=== PATIENT | male | born 1955 | race Caucasian/White ===

== ENCOUNTER 2017-10-21 20:20 | Emergency (ER) | payer MEDICAID ==
[2017-10-21] MEDS ORDERED: HYDROmorphone 0.5 MG/0.5 ML Syringe IVPUSH ONE ×2 (20:48→21:44)
[2017-10-21] MEDS ORDERED: Sodium Chloride 0.9% 1,000 ML IV SCH (21:00)
[2017-10-21] MEDS ORDERED: Sodium Chloride 0.9% 10 ML Syringe FLUSH PRN (21:44)
[2017-10-21] MEDS ORDERED: Iopamidol 612 MG/ML 100 ML Bottle IV SCH (21:45)
[2017-10-21] MEDS ORDERED: Sodium Chloride 0.9% 80 ML IV SCH (21:45)
--- NOTE | 2017-10-21 21:59 | EDM.PDOC ---
ED HPI GENERAL MEDICAL PROBLEM - General Chief Complaint: General Stated Complaint: HURT BACK Time Seen by Provider: 10/21/17 20:45 Source of Information: Reports: Patient History Limitations: Reports: No Limitations - History of Present Illness INITIAL COMMENTS - FREE TEXT/NARRATIVE: 62-year-old male slipped on the ice 6 hours ago striking his head and right back very hard on the ice. He thinks it may have even temporarily lost consciousness, but he has no neurologic symptoms or headache at this time. He has some mild nausea, but the majority of his complaints are intense right flank discomfort, pleuritic pain with breathing and pain with moving. Denies abdominal pain. He also has no appetite and has not eaten anything since his fall. Onset: Sudden Duration: Hour(s): (6 hours ago) Location: Reports: Chest, Back Severity: Moderate Worsens with: Reports: Breathing, Movement Associated Symptoms: Denies: Confusion right ribs Pain Score (Numeric/FACES): 8 - Related Data Allergies Allergy/AdvReac Type Severity Reaction Status Date / Time No Known Allergies Allergy Verified 10/21/17 20:38 Home Meds: Home Meds Folic Acid 1 mg PO DAILY 10/21/17 [History] Methotrexate 10 tab PO Q7D 10/21/17 [History] Past Medical History Musculoskeletal History: Reports: Fracture Hematologic History: Reports: Folic Acid Oncologic (Cancer) History: Reports: Other (See Below) Other Oncologic History: skin CA Dermatologic History: Reports: Eczema - Past Surgical History Musculoskeletal Surgical History: Reports: Other (See Below) Other Musculoskeletal Surgeries/Procedures:: L hip repair after fracture Social & Family History - Tobacco Use Smoking Status *Q: Current Every Day Smoker Years of Tobacco use: 45 Packs/Tins Daily: 1 - Caffeine Use Caffeine Use: Reports: Coffee - Recreational Drug Use Recreational Drug Use: No ED ROS GENERAL - Review of Systems Review Of Systems: See Below Constitutional: Denies: Fever, Chills Respiratory: Reports: Pleuritic Chest Pain. Denies: Shortness of Breath Cardiovascular: Reports: Chest Pain GI/Abdominal: Reports: Nausea. Denies: Abdominal Pain, Vomiting Musculoskeletal: Reports: Back Pain Skin: Denies: Bruising, Erythema Neurological: Denies: Headache ED EXAM, GENERAL - Physical Exam Exam: See Below Exam Limited By: No Limitations General Appearance: Alert, Mild Distress (Patient is fairly uncomfortable) Eye Exam: Bilateral Eye: Normal Inspection Head: Atraumatic Respiratory/Chest: No Respiratory Distress, Lungs Clear, Other (Patient is intensely sore to palpation across the right flank area, there is no crepitus or bruising seen) Cardiovascular: Regular Rate, Rhythm GI/Abdominal: Soft, Non-Tender Neurological: Alert, Oriented Skin Exam: Warm, Dry Course - Vital Signs Last Recorded V/S: Last Vital Signs Temp 100.0 F 10/21/17 20:35 Pulse 82 10/21/17 22:16 Resp 15 10/21/17 22:16 BP 157/76 H 10/21/17 22:16 Pulse Ox 94 L 10/21/17 22:16 - Orders/Labs/Meds Orders: Active Orders 24 hr Category Date Time Status Chest Abdomen Pelvis w Cont [CT] Stat Exams 10/21/17 21:27 Taken Labs: Laboratory Tests 10/21/17 10/21/17 Range/Units 20:55 20:55 WBC 17.2 H (4.5-11.0) K/uL RBC 5.21 (4.30-5.90) M/uL Hgb 15.7 H (12.0-15.0) g/dL Hct 45.7 (40.0-54.0) % MCV 88 (80-98) fL MCH 30 (27-31) pg MCHC 34 (32-36) % Plt Count 330 (150-400) K/uL Neut % (Auto) 85 H (36-66) % Lymph % (Auto) 7 L (24-44) % [place] % (Auto) 7 H (2-6) % Eos % (Auto) 0 L (2-4) % Baso % (Auto) 0 (0-1) % Sodium 135 L (140-148) mmol/L Potassium 4.0 (3.6-5.2) mmol/L Chloride 100 (100-108) mmol/L Carbon Dioxide 27 (21-32) mmol/L Anion Gap 12.0 (5.0-14.0) mmol/L BUN 18 (7-18) mg/dL Creatinine 0.9 (0.8-1.3) mg/dL Est Cr Clr Drug Dosing 90.12 mL/min Estimated GFR (MDRD) > 60 (>60) Glucose 105 (74-106) mg/dL Calcium 9.2 (8.5-10.1) mg/dL Meds: Medications Discontinued Medications Generic Name Dose Route Start Last Admin Trade Name Freq PRN Reason Stop Dose Admin Hydromorphone HCl 0.5 mg 10/21/17 20:48 10/21/17 21:18 Dilaudid IVPUSH 10/21/17 20:49 0.5 mg ONETIME ONE Administration Hydromorphone HCl 0.5 mg 10/21/17 21:44 10/21/17 21:48 Dilaudid IVPUSH 10/21/17 21:45 0.5 mg ONETIME ONE Administration Sodium Chloride 1,000 mls @ 500 mls/hr 10/21/17 21:00 10/21/17 21:18 Normal Saline IV 500 mls/hr ASDIRECTED AIDA Administration Sodium Chloride 80 mls @ 3 mls/sec 10/21/17 21:45 10/21/17 22:03 Normal Saline IV 3 mls/sec ASDIRECTED AIDA Administration Iopamidol 100 ml 10/21/17 21:45 10/21/17 22:03 Isovue-300 (61%) IV 100 ml . DIRECTED AIDA Administration Sodium Chloride 10 ml 10/21/17 21:44 10/21/17 22:03 Saline Flush FLUSH 10 ml ASDIRECTED PRN Administration Keep Vein Open - Re-Assessments/Exams Free Text/Narrative Re-Assessment/Exam: 10/21/17 21:58 CBC revealed a white count of 17,000 which could be an indicator of underlying or significant trauma. BMP was normal. After 500 mL of normal saline, a chest and abdomen CT scan with IV contrast under trauma protocol was done. The patient was given 0.5 mg of IV Dilaudid which had to be repeated prior to the CT scan. 10/21/17 23:27 CT confirmed an isolated 11th right rib fracture, minimally displaced. Patient will be discharged with 20 Vicodin to take on a when necessary basis for pain control and encouraged to increase activity as tolerated. Departure - Departure Time of Disposition: 23:44 Disposition: Home, Self-Care 01 Condition: Fair Clinical Impression: Right rib fracture Qualifiers: Encounter type: initial encounter Rib fracture type: single rib Fracture type: closed Qualified Code(s): S22.31XA - Fracture of one rib, right side, initial encounter for closed fracture - Discharge Information Instructions: Rib Fracture, [id number] Referrals: PCP,None [Primary Care Provider] - Forms: ED Department Discharge Care Plan Goals: Ice over the sore area for the first 2 days may help, increase activity as tolerated. Use pain medications as needed, especially if trying to get rest. Wrapping is okay as long as you're awake and active. Return anytime if worsening such as difficulty breathing, and consider rechecking in 1-2 weeks if not improving satisfactorily. - My Orders Last 24 Hours: My Active Orders 10/21/17 21:27 Chest Abdomen Pelvis w Cont [CT] Stat - Assessment/Plan Last 24 Hours: My Active Orders 10/21/17 21:27 Chest Abdomen Pelvis w Cont [CT] Stat
== END 2017-10-21 23:43 | disposition home or self-care (01) ==
LOC: JP.ED 20:20
DX: S22.31XA Fracture of one rib, right side, initial encounter for closed fracture (principal); F17.210 Nicotine dependence, cigarettes, uncomplicated; W00.0XXA Fall on same level due to ice and snow, initial encounter
CPT/HCPCS: 36415; 71260; 74177; 80048; 85025; 96361; 96374; 99284; J1170; J7030; J7040; J7050; Q9967